=== PATIENT | female | born 1955 | race Caucasian/White ===

== ENCOUNTER 2018-07-31 13:58 | Outpatient (CLI) | payer BC ==
--- NOTE | 2018-07-31 14:51 | ULT ---
THYROID ULTRASOUND: HISTORY: Hypothyroidism. FINDINGS: Real-time imaging of the right and left lobes of the thyroid were performed. The right lobe measures 1.4 x 1.5 x 4.2 cm and the left lobe 1.2 x 1.3 x 4.4 cm. There are bilateral thyroid nodules, some of which are cystic and some of which are complex cystic areas. These of these are subcentimeter in size. IMPRESSION: Bilateral subcentimeter thyroid nodules most of which are cystic or complex cystic in appearance. POS: C
== END 2018-07-31 13:59 | disposition home or self-care (01) ==
LOC: SCSULT 13:58
PROVIDERS: ATTEND Family Medicine
DX: E03.9 Hypothyroidism, unspecified (principal); E04.1 Nontoxic single thyroid nodule
CPT/HCPCS: 76536

== ENCOUNTER 2018-09-13 10:43 | Outpatient (CLI) | payer BC ==
--- NOTE | 2018-09-19 16:39 | MMO ---
BILATERAL SCREENING MAMMOGRAM: Date: 09/13/18 INDICATION: Annual exam. COMPARISON: Prior exams dated 07/24/16 and 08/31/11. FINDINGS: Interpretation of this exam was assisted with computer-aided detection. The breast parenchyma is heterogeneously dense. No new suspicious mass, cluster of microcalcifications, or area of architectural distortion is eviden t. IMPRESSION: BIRADS 1: Negative Recommend routine annual mammographic screening. POS: OSVALDO
== END 2018-09-13 10:44 | disposition home or self-care (01) ==
LOC: SCSMAMMO 10:43
PROVIDERS: ATTEND Family Medicine
DX: Z12.31 Encounter for screening mammogram for malignant neoplasm of breast (principal)
CPT/HCPCS: 77067

== ENCOUNTER 2019-07-28 13:44 | Outpatient (CLI) | payer MEDICARE, BC ==
--- NOTE | 2019-07-28 14:47 | ULT ---
THYROID ULTRASOUND INDICATION: Follow-up thyroid cysts TECHNIQUE: Grayscale and color Doppler images were obtained of the thyroid gland. COMPARISON: July 31, 2018 FINDINGS: Right thyroid lobe: The right thyroid lobe measures 4.0 x 1.4 x 1.4 cm. The TIRADS 1 cyst involving t he superior to mid right thyroid lobe is stable measuring 5 x 5 x 6 mm. There is a stable TIRADS 2 lesion seen within the mid right thyroid lobe measuring 4 x 4 x 4 mm. There are 3 mm TIRADS 1 cysts s een within the medial to lower right thyroid lobe. Thyroid isthmus: The thyroid isthmus measures 0.24 cm. Left thyroid lobe: The left thyroid lobe measures 4.0 x 1.3 x 1.1 cm. The complex TIRADS 2 lesion inv olving the superior pole of the left thyroid lobe has increased in size now measuring 9.7 x 7.3 x 8.4 mm . Previously this lesion measured 7.1 x 5.3 x 7.7 mm. The complex TIRADS 2 lesion involving th e lower pole of the left thyroid lobe has increased in size now measuring 1.1 x 0.6 x 1.2 cm were previously measured 0.9 x 0.6 x 1.1 cm. IMPRESSION: 1. Slight interval enlargement of the cystic abnormalities involving the left thyroid lobe. These are TIRADS 2 lesions and require no ultrasound follow-up. 2. Stable TIRADS 2 lesion and TIRADS 1 lesions in the right thyroid lobe. These require no ultrasound follow-up.
== END 2019-07-28 13:45 | disposition home or self-care (01) ==
LOC: SCSULT 13:44
PROVIDERS: ATTEND Family Medicine
DX: E04.1 Nontoxic single thyroid nodule (principal); E07.89 Other specified disorders of thyroid
CPT/HCPCS: 76536